=== PATIENT | female | born 1960 | race Caucasian/White ===

== ENCOUNTER 2020-07-12 13:10 | Outpatient (REF) | payer OTHER, SELFPAY ==
[2020-07-12 14:33] LABS: Alanine Aminotransferase 47 U/L (0-31); Anion Gap 16 (12-20); Aspartate Amino Transferase 49 U/L (5-31); Blood Urea Nitrogen 17 mg/dL (9-16); Carbon Dioxide 24 mmol/L (22-29); Chloride 102 mmol/L (96-108); Estimated Glomerular Filt Rate 59; Potassium 4.4 mmol/l (3.3-5.1); Sodium 138 mmol/L (135-145)
[2020-07-12 14:57] LABS: Free T4 (Free Thyroxine) 0.99 ng/dL (0.71-1.85); Thyroid Stimulating Hormone 7.49 mIU/mL (0.32-4.0)
== END 2020-07-12 13:11 | disposition home or self-care (01) ==
LOC: HO.10HDL 13:10
PROVIDERS: Visit Provider Family Medicine
DX: I10 Essential (primary) hypertension (principal); E03.9 Hypothyroidism, unspecified; E78.00 Pure hypercholesterolemia, unspecified; Z79.899 Other long term (current) drug therapy
CPT/HCPCS: 80051; 82550; 82565; 84439; 84443; 84450; 84460; 84520

== ENCOUNTER 2021-05-16 10:47 | Outpatient (REF) | payer SELFPAY ==
[2021-05-16 14:51] LABS: Alanine Aminotransferase 51 U/L (0-31); Aspartate Amino Transferase 51 U/L (5-31); Blood Urea Nitrogen 17 mg/dL (9-16); Cholesterol 159 mg/dL; Estimated Glomerular Filt Rate > 60; Glucose Fasting 108 mg/dL (60-99); HDL Cholesterol 52 mg/dL; LDL Cholesterol Calculated 81 mg/dl; Triglycerides 130 mg/dL
[2021-05-16 15:14] LABS: T4 Thyroxine 9.6 ug/dL (4.5-12.0); Thyroid Stimulating Hormone 5.06 uIU/mL (0.32-4.0)
== END 2021-05-16 10:48 | disposition home or self-care (01) ==
LOC: HO.10HDL 10:47
PROVIDERS: PCP Family Medicine; Visit Provider Family Medicine
DX: E03.9 Hypothyroidism, unspecified (principal); I10 Essential (primary) hypertension; E78.00 Pure hypercholesterolemia, unspecified; Z79.899 Other long term (current) drug therapy
CPT/HCPCS: 36415; 80061; 82550; 82565; 82947; 84436; 84443; 84450; 84460; 84520

== ENCOUNTER 2021-12-27 13:08 | Outpatient (REF) | payer OTHER, SELFPAY ==
[2021-12-27 14:13] LABS: COVID-19 Test Negative (Negative); IDNOW Serial# 08D9AD1C
== END 2021-12-27 13:09 | disposition home or self-care (01) ==
LOC: HO.LAB 13:08
PROVIDERS: PCP Family Medicine; Visit Provider Internal Medicine
DX: Z20.822 Contact with and (suspected) exposure to COVID-19 (principal)
CPT/HCPCS: 87635; C9803

== ENCOUNTER 2023-01-22 12:44 | Outpatient (REF) | payer OTHER, SELFPAY ==
[2023-01-22 14:26] LABS: Blood Urea Nitrogen 17 mg/dL (9-16); Estimated Glomerular Filt Rate > 60
== END 2023-01-22 12:45 | disposition home or self-care (01) ==
LOC: HO.10HDL 12:44
PROVIDERS: Visit Provider Family Medicine
DX: I10 Essential (primary) hypertension (principal)
CPT/HCPCS: 36415; 82565; 84520

== ENCOUNTER 2025-06-27 14:14 | Outpatient (AMB) | payer MEDICARE, SELFPAY ==
--- NOTE | 2025-06-27 14:16 | MHC.PC.OV ---
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: No Accompanied by: Self / Same As Patient Allergies No Known Allergies (No Known Allergies*) Allergy (Verified 06/27/25 14:17) Medication List - Last Reconciled 06/27/25 by LUKAS Ibrahim atorvastatin (Lipitor) 40 mg PO BEDTIME betamethasone, augmented 0.05 % topical BEDTIME PRN bupropion HCl XL 300 mg PO QAM dupilumab (Dupixent) mg subcut hydrochlorothiazide 25 mg PO QAM levothyroxine 175 mcg PO QAM metoprolol succinate ER 50 mg PO QAM metronidazole 0.75% topical QAM PRN nitroglycerin mg sublingual omeprazole 40 mg PO DAILY sertraline 100 mg PO DAILY valsartan 80 mg PO BID Tobacco use date assessed: 06/27/25 Fall risk assessment: No Falls in past year Last assessed Fall Risk: 06/27/25 Dental Screening Dental Screen Date: 06/27/25 Did you have a dental visit in the last 12 months?: Yes Did you have a dental problem in the last 6 months where you did not have access to dental care?: No Was dental information given to patient?: Patient has dentist HPI HPI Comments History of Present Illness Details 65-year-old female with history of hypothyroidism, hypertension, venous insufficiency, coronary artery disease, major depressive disorder, Tobias, hypercholesterolemia, GERD, eczema presenting to the office today for management of chronic conditions and to establish care. Hypertension-on metoprolol 50 mg ER, hydrochlorothiazide 25 mg daily, valsartan 80 mg twice daily. Blood pressure in the office 130/80. CAD /HLD-baby aspirin, atorvastatin 40 mg nightly, Toprol 50 mg daily. Nitro p.r.n.. Reports only occasional chest pain that is fleeting. Follows with [facility] annually. S/p CABG x3 in 2002 Eczema-following with dentist Dermatology. On Dupixent and uses betamethasone as needed Hypothyroidism-due for TSH. On levothyroxine 175 mcg daily. MDD-stable on sertraline 100 mg daily, bupropion 300 mg daily XR GERD-ppi Severe obesity-BMI 38.6. S/p lap band, s/p gastric sleeve 2002. Has lost 67 lb and continues with weight loss. Surgery was performed by Dr. Abrams at [facility] who has since retired. 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 Sciatica-intermittent flares with radiation into the left lower extremity which does impact her walking. Currently asymptomatic. Concerns: None Health maintenance: Due for mammogram, has these completed at [facility] Bone density scan ordered at [facility] Last screening colonoscopy 09/2016 with 10 year follow-up advised. Dr. Terrell ROS: General: No fevers, malaise, unintentional weight loss HEENT: No blurred vision, diplopia. No sore throat, nasal congestion, rhinorrhea, sinus pain, ear pain Cardiovascular: No chest pain, palpitations, or leg edema Respiratory: No shortness of breath, wheezing, cough GI: No abdominal pain, nausea, vomiting, diarrhea, constipation, melena, hematochezia : No dysuria, hematuria, increased urinary frequency, decreased urinary output MSK: No myalgia, back pain Neuro: No headaches, weakness, paresthesias Skin: No rashes or lesions EXAM: Constitutional - Awake and Alert, No apparent distress Eyes - PERRL Cardiovascular - S1S2, RRR, No edema Respiratory - Normal lung expansion, Normal respiratory effort, No respiratory distress, CTA bilaterally Extremities - no calf tenderness bilaterally, no swelling Skin - Warm/Dry Neurological - Alert & oriented x3 Psychological - Appropriate affect PFSH Medical History (Updated 06/27/25 @ 15:05 by LUKAS Ibrahim) Major depressive disorder GERD (gastroesophageal reflux disease) Hypercholesterolemia TOBIAS (nonalcoholic steatohepatitis) Sciatica Venous insufficiency Recurrent pneumonia Eczema Hypothyroidism HTN (hypertension) CAD (coronary artery disease) Surgical History (Updated 06/27/25 @ 14:45 by LUKAS Ibrahim) S/P shoulder surgery Status post ORIF of fracture of ankle S/P CABG x 3 History of colonoscopy (~10/04/16) Family History (Updated 06/27/25 @ 14:46 by LUKAS Ibrahim) Mother Breast cancer CAD (coronary artery disease) Diabetes Maternal Aunt Breast cancer Father Diabetes Social History Housing: House Patient Tobacco Use Status: Former Tobacco user Years Smoked: 20 years, quit e-Cigarette/Vaping Use: Never Used service: No Current occupational status: retired Questionnaire AUDIT C Alcohol Use Questionnaire (AUDIT-C) 1. How often do you have a drink containing alcohol?: Monthly or less 2. How many drinks containing alcohol do you have on a typical day when you are drinking?: 1 or 2 3. How often do you have six or more drinks on one occasion?: Never Total Score: 1 Physical exam (Primary Care) Vital Signs: Last Vital Signs Temp 96.9 F 06/27/25 14:23 Pulse 72 06/27/25 14:23 Resp 16 06/27/25 14:23 BP 130/80 06/27/25 14:23 Pulse Ox 96 06/27/25 14:23 Oxygen Delivery Method Room Air 06/27/25 14:23 BMI result Body Mass Index 38.6 Tobacco/Smoking Status: Tobacco use Status Tobacco use date assessed 06/27/25 06/27/25 14:19 Patient Tobacco Use Status Former Tobacco user 06/27/25 14:26 e-Cigarette/Vaping Use Never Used 06/27/25 14:26 Coding Level of Care Code New Pt Level 4 (68636) Complex EM visit Add On G2211 Diagnoses Hypercholesterolemia E78.00 Major depressive disorder F32.9 HTN (hypertension) I10 CAD (coronary artery disease) I25.10 Hypothyroidism E03.9 Eczema L30.9 Assessment & Plan Assessment & Plan (1) Hypercholesterolemia: Code(s): E78.00 - Pure hypercholesterolemia, unspecified Category: Medical Plan: Lipid panel ordered. Continue atorvastatin (2) Major depressive disorder: Code(s): F32.9 - Major depressive disorder, single episode, unspecified Category: Medical Plan: Stable. Continue bupropion and sertraline (3) HTN (hypertension): Code(s): I10 - Essential (primary) hypertension Category: Medical Plan: Controlled. Continue hydrochlorothiazide, metoprolol, valsartan. We will evaluate renal function and electrolyte levels (4) CAD (coronary artery disease): Code(s): I25.10 - Atherosclerotic heart disease of [place] coronary artery without angina pectoris Category: Medical Plan: Stable, no anginal chest pain. Continue following with Cardiology. Continue Toprol 50 mg, baby aspirin, statin. Nitro only as needed. If requiring multiple doses of nitro, go to the ER for further evaluation (5) Hypothyroidism: Code(s): E03.9 - Hypothyroidism, unspecified Category: Medical Plan: TSH ordered. Continue levothyroxine (6) Eczema: Code(s): L30.9 - Dermatitis, unspecified Category: Medical Plan: Stable. Continue with Dupixent from [facility] Plan Follow-up in 6 months. Labs to be completed today. Referred for screening mammogram and DEXA scan. Orders: Orders Basic Metabolic Panel Today E03.9 - Hypothyroidism, unspecified, I10 - Essential (primary) hypertension, I25.10 - Atherosclerotic heart disease of [place] coronary artery without angina pectoris Complete Blood Count Auto Diff Today E03.9 - Hypothyroidism, unspecified, I10 - Essential (primary) hypertension, I25.10 - Atherosclerotic heart disease of [place] coronary artery without angina pectoris Hemoglobin A1c Today E03.9 - Hypothyroidism, unspecified, I10 - Essential (primary) hypertension, I25.10 - Atherosclerotic heart disease of [place] coronary artery without angina pectoris Lipid Panel Today E03.9 - Hypothyroidism, unspecified, I10 - Essential (primary) hypertension, I25.10 - Atherosclerotic heart disease of [place] coronary artery without angina pectoris Liver Panel Today E03.9 - Hypothyroidism, unspecified, I10 - Essential (primary) hypertension, I25.10 - Atherosclerotic heart disease of [place] coronary artery without angina pectoris Vitamin D 25-OH Total Today E03.9 - Hypothyroidism, unspecified, I10 - Essential (primary) hypertension, I25.10 - Atherosclerotic heart disease of [place] coronary artery without angina pectoris XR DEXA axial skeleton Today M89.8X9 - Other specified disorders of bone, unspecified site, Z78.0 - Asymptomatic menopausal state TSH reflex Free T4 Today E03.9 - Hypothyroidism, unspecified, I10 - Essential (primary) hypertension, I25.10 - Atherosclerotic heart disease of [place] coronary artery without angina pectoris MM tomosynthesis screening BI Today Z12.31 - Encounter for screening mammogram for malignant neoplasm of breast Medications: New sertraline 100 mg PO DAILY 90 tabs 1RF nitroglycerin 0.4 mg sublingual Q5M PRN 30 tabs 0RF chest pain Patient Instructions: Patient Portal: [email or web address] patient portal Enter information requested
[2025-06-27 14:23] VITALS: BP 130/80; PULSE 72; RESP 16; TEMP 36.1; O2SAT 96; BMI 38.6
--- OUTSIDE RECORDS SUMMARY | 2025-06-27 16:46 | XMS_ITS | Patient Health Record ---
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) Jorge HOWE Primary Care Provider Unavailable Harris Terrell Jr Unavailable [phone] Allergies Allergen (clinical drug ingredient) Drug/Non Drug Allergy documented on EMR Reaction Allergy Type Onset Date Status seasonal (uncoded) Unknown Allergy A ctive Reason For Referral No Information Medications Medication SIG (Take, Route, Frequency, Duration) Notes Start Date End Date Status Lipitor 40 MG 1 tablet Orally Once a day Active Metoprolol Tartrate 25 MG 1 tablet Orall y Twice a day Active Aspir-81 81 MG 1 tablet Orally Once a day Active Colyte with Flavor Packs 240 GM As direc jeimy Orally Over the specified time. for 1 day(s) 05/29/2016 Active Omeprazole 40 MG 1 capsule Orally Twice a day for 30 Active Losartan Potassium 50 MG 1 tablet Orally Once a day Active Sertraline HCl 50 MG 1 tablet Orally Onc e a day Active Levothyroxine Sodium 150 MCG 1 tablet Or ally Once a day Active amLODIPine Besylate 2.5 MG 1 tablet Oral ly Once a day Active hydroCHLOROthiazide 25 MG 1 tablet Orall y Once a day Active Problems Problem Type SNOMED Code ICD Code Onset Dates Problem Status W/U Status Risk Notes Problem [id number] Gastro-esophagea l reflux disease without esophagitis (K21.9) Active confirmed Problem [id number] Change in bowel habits (R19.4) Active confirmed Plan Of Treatment Future Test Test Name Order Date COLONOSCOPY 05/29/2016 Insurance Providers Payer Name Payer Address Payer Phone Subscriber Number Group Number Insured Name Patient Relationship to Insured Coverage Start Date Coverage End Date [facility] [address] [place] [phone] [id number] CHIQUITA NIX Self - patient is the insured Medical (General) History Medical History History ICD Code [place] 2002 hypertension hypothyroidism elevated cholesterol sleep apnea Surgical History Surgery Date(Month/Year) heart surgery- tripple bypass 2002 lap band 2006
== END 2025-06-27 14:56 | disposition home or self-care (01) ==
LOC: HO.HMCHD 14:14
PROVIDERS: PCP Physician Assistant; Visit Provider Physician Assistant
DX: E78.00 Pure hypercholesterolemia, unspecified (principal); F32.9 Major depressive disorder, single episode, unspecified; I10 Essential (primary) hypertension; I25.10 Atherosclerotic heart disease of native coronary artery without angina pectoris; E03.9 Hypothyroidism, unspecified; L30.9 Dermatitis, unspecified

== ENCOUNTER → 2025-06-27 14:14 | Outpatient (BNVA) | payer MEDICARE, SELFPAY | PROVIDERS: PCP Family Medicine; Visit Provider Physician Assistant | DX: E78.00 Pure hypercholesterolemia, unspecified (principal); F32.9 Major depressive disorder, single episode, unspecified; I10 Essential (primary) hypertension; I25.10 Atherosclerotic heart disease of native coronary artery without angina pectoris; E03.9 Hypothyroidism, unspecified; L30.9 Dermatitis, unspecified; K21.9 Gastro-esophageal reflux disease without esophagitis; E66.9 Obesity, unspecified; Z68.38 Body mass index [BMI] 38.0-38.9, adult; M54.30 Sciatica, unspecified side; Z79.82 Long term (current) use of aspirin; Z79.899 Other long term (current) drug therapy | CPT/HCPCS: 99202 ==